=== PATIENT | male | born 1985 | race Two or more races ===

== ENCOUNTER 2020-04-06 08:42 | Emergency (ER) | payer OTHER ==
[~2020-04-06] VITALS: Ht 182.9 cm; Wt 87.5 kg
[2020-04-06 08:54] VITALS: BP 159/76
--- NOTE | 2020-04-06 08:54 | NUR ---
ED Nurse Note: Patient from home and walked in due to CP that radiates to his left arm and neck which started yesterday. Denies lightheadedness or flu symptoms. Patient describes sharp pricking sensation and worse upon movement. patient is AAO x4, ambulatory with non labored breathing.
--- NOTE | 2020-04-06 09:08 | Emergency Room Report ---
History of Present Illness General Chief Complaint: Chest Pain Source: Patient Present Illness HPI Patient is a 34-year-old male presents for increased chest discomfort. Onset of symptoms last night. Reports having pain to the left side of his chest radiating to the neck and left arm. Pain appears to be somewhat worse with movements. Denies any change with exertion reports that it is somewhat proved with walking. Denies any prior cardiac history. Has prior history of high cholesterol. He intermittently smokes hookah. Denies any drug use. Denies recent fever or cough. Denies sick contacts. Denies prior history family history of cardiac disease. Does not take medications regularly. Pain was present last night and had been more prominent this morning. Denies any vomiting or diarrhea. 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 COVID-19 Screening: Negative COVID-19 COVID-19 Testing Source: clinic Patient History Past Medical History: see triage record Reviewed Nursing Documentation: PMH: Agreed; PSxH: Agreed Nursing Documentation-PMH Past Medical History: No Stated History Review of Systems All Other Systems: negative except mentioned in HPI Physical Exam Vital Signs Date Time Temp Pulse Resp B/P (MAP) Pulse Ox O2 Delivery O2 Flow Rate FiO2 04/06/20 08:44 99.0 96 19 135/83 (100) 98 Room Air Sp02 EP Interpretation: reviewed, normal General Appearance: normal inspection, well appearing, no apparent distress, alert, GCS 15 Head: atraumatic ENT: normal ENT inspection, hearing grossly normal, normal voice Neck: normal inspection, full range of motion, supple, no bony tend Respiratory: normal inspection, lungs clear, normal breath sounds, no respiratory distress, no retraction, no wheezing Cardiovascular #1: regular rate, rhythm, no edema Gastrointestinal: normal inspection, normal bowel sounds, non tender, soft, no guarding, no hernia Genitourinary: no CVA tenderness Musculoskeletal: normal inspection, back normal, normal range of motion Neurologic: alert, motor strength/tone normal, 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 Differential diagnosis include was not limited to acute coronary syndrome, pneumonia, coronavirus infection, pericarditis, pneumothorax among others. Because of complexity of patient's case laboratory tests and imaging studies were ordered. EKG interpreted by me showed normal sinus rhythm with a rate of [address] or T wave changes. Patient's laboratory testing did show some thrombocytopenia as well as lymphopenia. He had previous coronavirus infection reportedly several months ago. D-dimer was negative. this patient has minimal risk for pulmonary embolism and this effectively rules out PE. Patient's chest pain has been present for long enough time to effectively rule out myocardial infarction. Chest x-ray 1 view interpreted by me showed normal cardiac size without evident infiltrate.Patient does not have any significant cardiac risk factors. He was given aspirin. Bedside ultrasound showed no evidence of pericardial effusion or wall motion abnormalities. Repeat EKG did not show any dynamic changes. Patient was advised caffeine cessation. He was given prescription for aspirin as well as acid blockers. Patient was agreeable with discharge plan. He was advised to return if worse. Patient was advised to follow-up with his doctors at [facility] for recheck and further evaluation of chest discomfort. This medical record is generated with [employer] pig breeder software. There may be some pig breeder discrepancies related to use of this software Labs Test 04/06/20 09:01 White Blood Count 4.8 K/UL (4.8-10.8) Red Blood Count 5.42 M/UL (4.70-6.10) Hemoglobin 16.4 G/DL (14.2-18.0) Hematocrit 44.7 % (42.0-52.0) Mean Corpuscular Volume 83 FL (80-99) Mean Corpuscular Hemoglobin 30.3 PG (27.0-31.0) Mean Corpuscular Hemoglobin Concent 36.7 G/DL (32.0-36.0) Red Cell Distribution Width 12.9 % (11.6-14.8) Platelet Count 142 K/UL (150-450) Mean Platelet Volume 8.3 FL (6.5-10.1) Neutrophils (%) (Auto) 71.5 % (45.0-75.0) Lymphocytes (%) (Auto) 12.9 % (20.0-45.0) Monocytes (%) (Auto) 11.6 % (1.0-10.0) Eosinophils (%) (Auto) 1.8 % (0.0-3.0) Basophils (%) (Auto) 2.1 % (0.0-2.0) EKG Diagnostic Results Rate: normal - 87 Rhythm: NSR ST Segments: no acute changes Last Vital Signs Date Time Temp Pulse Resp B/P (MAP) Pulse Ox O2 Delivery O2 Flow Rate FiO2 04/06/20 08:44 99.0 96 19 135/83 (100) 98 Room Air Status: improved Disposition: HOME, SELF-CARE Condition: Stable Scripts Omeprazole (OMEPRAZOLE) 20 Mg Capsule.dr 20 MG ORAL DAILY for Gerd, #30 CAP Prov: Umang Oseguera MD 04/06/20 Aspirin* (ASPIRIN*) 325 Mg Tablet 325 MG ORAL DAILY for Antiplatelet, #30 TAB Prov: Umang Oseguera MD 04/06/20 Umang Oseguera MD Apr 06, 2020 09:08
[2020-04-06] MEDS: Aspirin Baby 81mg ORAL ONE (09:13)
--- NOTE | 2020-04-06 09:20 | NUR ---
ED Nurse Note: Collected blood and urine specimen and sent.
[2020-04-06 09:29] LABS: BASOPHILS % (AUTO) 2.1 % (0.0-2.0); EOSINOPHILS % (AUTO) 1.8 % (0.0-3.0); HEMATOCRIT 44.7 % (42.0-52.0); HEMOGLOBIN 16.4 G/DL (14.2-18.0); LYMPHOCYTES % (AUTO) 12.9 % (20.0-45.0); MEAN CORPUSCULAR VOLUME 83 FL (80-99); MONOCYTES % (AUTO) 11.6 % (1.0-10.0); NEUTROPHILS % (AUTO) 71.5 % (45.0-75.0); PLATELET COUNT 142 K/UL (150-450); RED BLOOD COUNT 5.42 M/UL (4.70-6.10); RED CELL DISTRIBUTION WIDTH 12.9 % (11.6-14.8); WHITE BLOOD COUNT 4.8 K/UL (4.8-10.8)
[2020-04-06 09:41] LABS: ANION GAP 5 mmol/L (5-15); BLOOD UREA NITROGEN 17 mg/dL (7-18); CARBON DIOXIDE 30 MMOL/L (21-32); CHLORIDE 102 MMOL/L (98-107); CREATININE 1.1 MG/DL (0.55-1.30); POTASSIUM 4.1 MMOL/L (3.5-5.1); SODIUM 137 MMOL/L (136-145)
[2020-04-06 09:52] LABS: ALANINE AMINOTRANSFERASE 99 U/L (12-78); ALBUMIN 4.3 G/DL (3.4-5.0); ALBUMIN/GLOBULIN RATIO 1.3 (1.0-2.7); ALKALINE PHOSPHATASE 87 U/L (46-116); ASPARTATE AMINO TRANSFERASE 33 U/L (15-37); BILIRUBIN,TOTAL 0.5 MG/DL (0.2-1.0)
--- NOTE | 2020-04-06 10:21 | Diagnostic Imaging Report ---
Indication: Chest pain Technique: One view of the chest Comparison: none Findings: Lungs and pleural spaces are clear. Heart size is normal. Impression: No acute process
[2020-04-06] MEDS ORDERED: OMEPRAZOLE20 M2 ORAL (10:22)
[2020-04-06] MEDS ORDERED: ASPIRIN325 MG ORAL (10:22)
[2020-04-06 10:30] VITALS: BP 135/72
--- NOTE | 2020-04-06 10:30 | NUR ---
ED Nurse Note: Pt cleared by ERMD for discharge. DC instructions/prescription was given and explained to pt and verbalized understanding of teachings. All medical deviecs such as ID band and IV line removed. Pt is AAO x4, ambulatory and left with all personal belongings.
== END 2020-04-06 10:30 | disposition home or self-care (01) ==
LOC: EMR 09:22
DX: R07.9 Chest pain, unspecified (principal); F17.200 Nicotine dependence, unspecified, uncomplicated
CPT/HCPCS: 36415; 71045; 80053; 80307; 83880; 84484; 85025; 85379; 93005; 99284